=== PATIENT | male | born 1945 | race Caucasian/White ===

== ENCOUNTER → 2022-02-21 10:12 | Outpatient (BNVA) | payer MEDICARE, OTHER, SELFPAY | PROVIDERS: Visit Provider Family Medicine | DX: I10 Essential (primary) hypertension (principal); E11.9 Type 2 diabetes mellitus without complications | CPT/HCPCS: 80053; 80061; 83036 ==

== ENCOUNTER 2022-04-25 11:50 | Emergency (ER) | payer MEDICARE, OTHER, SELFPAY ==
--- NOTE | 2022-04-25 11:57 | XRR_ITS ---
PROCEDURE INFORMATION: Exam: XR Left Knee Exam date and time: 04/25/2022 12:13 PM Age: 77 years old Clinical indication: Pain; Knee; Left; Additional info: L knee pain TECHNIQUE: Imaging protocol: XR Left knee. Views: 3 views. Total images: 4 COMPARISON: No relevant prior studies available. FINDINGS: Bones/joints: Small joint effusion. Medial and lateral menisci chondrocalcinosis, suggestive of calcium pyrophosphate deposition arthropathy. Minimal marginal osteophytes are noted. No acute fracture nor subluxation. No osseous erosion nor periosteal reaction. Soft tissues: Normal. XR/XR knee LT 3V* [id number] IMPRESSION: 1. Small joint effusion. 2. Medial and lateral menisci chondrocalcinosis, suggestive of calcium pyrophosphate deposition arthropathy. 3. No acute osseous pathology.
[2022-04-25 12:43] VITALS: BMI 41.6
--- NOTE | 2022-04-25 12:52 | W.ED.LOWEXIN ---
HPI - Extremity Injury (Lower) General: Chief Complaint: Extremity Injury, Lower Stated Complaint: Twisted Left knee Time Seen by Provider: 04/25/22 12:29 Source: patient Mode of arrival: wheelchair Limitations: no limitations History of Present Illness: Patient is a 77-year-old male who presents to ED today along with his for evaluation of a left knee injury. Patient tells me approximately 3 days ago he was standing and states he immediately felt something snap/pop in his left knee. He states that he had been holding onto something the acute discomfort would have caused him to fall. Patient states he has been able to bear weight minimally since the incident which she just discomfort has not improved any. He has not noticed significant swelling to the knee joint. He is treating with OTC medications without much relief. MD complaint: knee injury Onset (ago): day(s) Injury: Left: knee Place: home Severity: moderate Relieving factors: immobilization Exacerbating factors: weight bearing, movement and palpation Associated symptoms: Reports no associated symptoms Other symptoms: none Treatments prior to arrival: NSAIDS Review of Systems Const: Denies: fever(s), chills, body aches, fatigue or malaise Card: Denies: chest pain Resp: Denies: dyspnea Musc: Reports: joint pain (L knee); Denies: neck pain, back pain, extremity pain, extremity swelling, joint swelling, joint redness or joint warmth Neuro: Denies: numbness in extremities, weakness in extremities or sensory changes [facility] ED PFSH: Medical History Stroke-like symptoms Family History Father Cancer skin Grandmother Diabetes paternal and maternal Hypertension Stroke Denies family history of Clotting disorder Bleeding disorder Social History Smoking and tobacco status: never smoked Physical Exam Const: COMMON NORMALS: no acute distress, patient oriented x3, no limitations and alert GENERAL APPEARANCE: cooperative NUTRITIONAL APPEARANCE: obese ORIENTATION/CONSCIOUSNESS: Yes awake, Yes oriented to person, Yes oriented to place and Yes oriented to time Extremity: COMMON NORMALS: full ROM, capillary refill normal, no joint enlargement, no clubbing, cyanosis or edema, no calf tenderness and no pedal edema LEFT LOWER EXTREMITY: Yes knee joint Left knee: Yes palpation (TTP mainly to medial joint line; no obvious laxity noted on exam), Yes ROM (full flexion/extention although does elict discomfort ) and Yes neurovascular exam (normal) Neuro: COMMON NORMALS: patient oriented x3, moves all extremities, no focal motor deficits and no sensory deficits noted SENSORIUM/ORIENTATION: Yes alert, Yes oriented to person, Yes oriented to place and Yes oriented to time MDM - Extremity Injury (Lower) Medical Decision Making Patient has a small effusion on his XR as well as some other chronic changes. Based on his history I suspect some mild internal derangement of his left knee. Recommend he purchase tight fitting velcro knee brace, ice, elevate, will treat with pain medications, and place referral to orthopedics for further evaluation. Patient and are agreeable to this plan. Lab Data Radiology Impressions Knee X-Ray 04/25/22 11:57 IMPRESSION: 1. Small joint effusion. 2. Medial and lateral menisci chondrocalcinosis, suggestive of calcium pyrophosphate deposition arthropathy. 3. No acute osseous pathology. Discharge Plan Discharge Patient Disposition: Home Clinical Impression: Left knee injury Qualifiers: Encounter type: initial encounter Qualified Code(s): S89.92XA - Unspecified injury of left lower leg, initial encounter Condition: Stable Prescriptions: New tramadol 50 mg tablet 50 mg PO Q6H PRN (Reason: pain) Qty: 14 0RF Discontinued oxycodone 5 mg tablet 5 mg PO BID PRN0RF No Action tamsulosin 0.4 mg capsule 0.4 mg PO DAILY 90 Days Qty: 90 3RF Janumet 50-1,000 mg tablet 1 tab PO DAILY 90 Days Qty: 90 1RF omeprazole 40 mg capsule,delayed release(DR/EC) 40 mg PO DAILY 90 Days Qty: 90 3RF Myrbetriq 25 mg tablet extended release 24 hr 25 mg PO DAILY 90 Days Qty: 90 1RF lisinopril 20 mg tablet 20 mg PO DAILY 90 Days Qty: 90 1RF finasteride 5 mg tablet 5 mg PO DAILY 90 Days Qty: 90 1RF Lantus Solostar U-100 Insulin 100 unit/mL (3 mL) insulin pen 34 unit SUBCUT .hs 30 Days Qty: 15 5RF (DME) lancets Misc See Rx Instructions .ROUTE .MEDSUPPLY Qty: 100 11RF Rx Instructions: For use with glucose meter, brand/type per insurance alcohol swabs Pads, Medicated 1 pad topical TID PRN (Reason: as needed to check blood sugar) 30 Days Qty: 100 11RF (DME) Comfort EZ Pen [place] 33 gauge x 1/4 needle See Rx Instructions .ROUTE .MEDSUPPLY Qty: 100 2RF Rx Instructions: As directed amlodipine 10 mg tablet 10 mg PO DAILY 90 Days Qty: 90 1RF duloxetine 20 mg capsule,delayed release(DR/EC) 20 mg PO BID 90 Days Qty: 180 1RF (DME) Blood Glucose Test Strip See Rx Instructions .ROUTE .MEDSUPPLY Qty: 100 11RF Rx Instructions: Use to test 3 times daily (DME) blood-glucose meter Kit See Rx Instructions .Route Qty: 1 0RF Rx Instructions: Use to test blood sugar 3 times daily gabapentin 300 mg capsule See Rx Instructions .ROUTE .COMPLEX Qty: 60 2RF Dose Instruction: TAKE 1 CAPSULE BY MOUTH TWICE DAILY Rx Instructions: TAKE 1 CAPSULE BY MOUTH TWICE DAILY metoprolol succinate 25 mg tablet extended release 24 hr 25 mg PO DAILY 90 Days Qty: 90 1RF Discharge Orders: Discharge ED (Routine); Ordered 04/25/22 Ordered By: Juli Cartagena Referrals: Aimee Miranda MD [Primary Care Provider] - Activity Restrictions/Additional Instructions: As we discussed you need to purchase an OTC Velcro knee brace for further support. Ice and elevate extremity. You may take pain medication prescribed to you today as needed for significant discomfort. You may also take an [id number] anti-inflammatory such as Aleve or Advil in addition to this medication. Case management should contact you shortly to set you up with your follow-up orthopedic appointment. 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
--- NOTE | 2022-04-26 14:35 | DCPLANNER ---
Addendum entered by Ambar Crenshaw 06/15/22 09:21: Patient had a follow up appointment scheduled for 05.01.[address] Joshi at ortho - patient did attend appointment. Addendum entered by Ambar Crenshaw 04/27/22 14:35: Patient has a follow up appointment scheduled for Sunday, May 01, 2022 at 3:[address] Joshi at ortho. Clinic will call patient with appointment information. Original Note: cyber workforce developer and manager had message to schedule a follow up appointment for patient with ortho. cyber workforce developer and manager sent patients information to the front office staff at ortho. Patients information will be printed and reviewed. Clinic will call patient with appointment information.
== END 2022-04-25 13:29 | disposition home or self-care (01) ==
PROVIDERS: Emergency Provider Physician Assistant; PCP Family Medicine
DX: S89.92XA Unspecified injury of left lower leg, initial encounter (principal); X58.XXXA Exposure to other specified factors, initial encounter; M25.462 Effusion, left knee
CPT/HCPCS: 73562; 99283

== ENCOUNTER → 2022-05-01 14:52 | Outpatient (BNVA) | payer MEDICARE, OTHER, SELFPAY | PROVIDERS: PCP Family Medicine; Visit Provider Specialist | DX: W19.XXXA Unspecified fall, initial encounter (principal); S89.92XA Unspecified injury of left lower leg, initial encounter | CPT/HCPCS: 73560; 73565; 99203; 99204 ==